=== PATIENT | female | born 1995 | race Caucasian/White ===

== ENCOUNTER 2017-06-02 05:34 | Emergency (ER) | payer BC ==
[2017-06-02] MEDS ORDERED: Acetaminophen 500 MG Tab PO ONE (06:20)
--- NOTE | 2017-06-02 06:21 | EDM.PDOC ---
<Jr Cook J - Last Filed: 06/02/17 06:19> ED HPI GENERAL MEDICAL PROBLEM - General Chief Complaint: Respiratory Problem Stated Complaint: LOWER RIGHT BACK PAIN, COUGH Time Seen by Provider: 06/02/17 05:57 - History of Present Illness INITIAL COMMENTS - FREE TEXT/NARRATIVE: HISTORY AND PHYSICAL: History of present illness: Patient's 21-year-old female was brought to 17 weeks who presents with a concern of history of otitis media and bronchitis who comes in now with left upper back pain related to coughing. She denies fever vomiting abdominal pain vaginal discharge bleeding or other concern is been no urinary symptoms. No trauma. Review of systems: As per history of present illness and below otherwise all systems reviewed and negative. Past medical history: As per history of present illness and as reviewed below otherwise noncontributory. Surgical history: As per history of present illness and as reviewed below otherwise noncontributory. Social history: No reported history of drug or alcohol abuse. Family history: As per history of present illness and as reviewed below otherwise noncontributory. Physical exam: HEENT: Atraumatic, normocephalic, pupils reactive, negative for conjunctival pallor or scleral icterus, mucous membranes moist, throat clear, neck supple, nontender, trachea midline. Lungs: Clear to auscultation, breath sounds equal bilaterally, chest nontender. Heart: S1S2, regular, negative for clicks, rubs, or JVD. Abdomen: Soft, gravid uterus Negative for masses or hepatosplenomegaly. Negative for costovertebral tenderness. Pelvis: Stable nontender. Genitourinary: Deferred. Rectal: Deferred. Extremities: Atraumatic, negative for cords or calf pain. Neurovascular unremarkable. Neuro: Awake, alert, oriented. Cranial nerves II through XII unremarkable. Cerebellum unremarkable. Motor and sensory unremarkable throughout. Exam nonfocal. Diagnostics: UA chest x-ray one view shielded abdomen heart tones Therapeutics: Tylenol 1 g by mouth Impression: 1 history of otitis media #2 left upper back pain #3 history of bronchitis #4 second trimester Definitive disposition and diagnosis as appropriate pending reevaluation and review of above. left lower back area Pain Score (Numeric/FACES): 7 - Related Data Allergies Allergy/AdvReac Type Severity Reaction Status Date / Time No Known Allergies Allergy Verified 06/02/17 05:48 Home Meds: Home Meds Amoxicillin 1 cap PO BID 06/02/17 [History] Past Medical History HEENT History: Reports: Otitis Media Cardiovascular History: Reports: None Respiratory History: Reports: Other (See Below) Other Respiratory History: Bronchitis Gastrointestinal History: Reports: None Genitourinary History: Reports: None [employer] History: Reports: None Musculoskeletal History: Reports: None Neurological History: Reports: None Psychiatric History: Reports: None Endocrine/Metabolic History: Reports: None Hematologic History: Reports: None Immunologic History: Reports: None Oncologic (Cancer) History: Reports: None Dermatologic History: Reports: None - Infectious Disease History Infectious Disease History: Reports: Chicken Pox - Past Surgical History Head Surgeries/Procedures: Reports: None Social & Family History - Family History Family Medical History: Noncontributory - Tobacco Use Smoking Status *Q: Never Smoker - Caffeine Use Caffeine Use: Reports: Coffee - Recreational Drug Use Recreational Drug Use: No ED ROS GENERAL - Review of Systems Review Of Systems: ROS reveals no pertinent complaints other than HPI. ED EXAM, GENERAL - Physical Exam Exam: See Below (dictation) Course - Vital Signs Last Recorded V/S: Last Vital Signs Temp 97.8 F 06/02/17 05:48 Pulse 106 H 06/02/17 05:48 Resp 18 06/02/17 05:48 BP 135/87 06/02/17 05:48 Pulse Ox 97 06/02/17 05:48 - Orders/Labs/Meds Orders: Active Orders 24 hr Category Date Time Status Heart Rate [RC] Click to Edit Care 06/02/17 06:30 Inactive Chest 1V Frontal [CR] Stat Exams 06/02/17 06:20 Taken Labs: Laboratory Tests 06/02/17 Range/Units 06:17 Urine Color YELLOW Urine Appearance CLEAR Urine pH 6.0 (5.0-8.0) Ur Specific [place] 1.020 (1.001-1.035) Urine Protein NEGATIVE (NEGATIVE) mg/dL Urine Glucose (UA) NEGATIVE (NEGATIVE) mg/dL Urine Ketones NEGATIVE (NEGATIVE) mg/dL Urine Occult Blood NEGATIVE (NEGATIVE) Urine Nitrite NEGATIVE (NEGATIVE) Urine Bilirubin NEGATIVE (NEGATIVE) Urine Urobilinogen 0.2 (<2.0) EU/dL Ur Leukocyte Esterase NEGATIVE (NEGATIVE) Urine RBC 0-1 (0-2/HPF) Urine WBC 0-2 (0-5/HPF) Ur Epithelial Cells FEW (NONE-FEW) Urine Bacteria RARE (NEGATIVE) Meds: Medications Discontinued Medications Generic Name Dose Route Start Last Admin Trade Name Eleazar PRN Reason Stop Dose Admin Acetaminophen 1,000 mg 06/02/17 06:20 06/02/17 06:25 Tylenol Extra Strength PO 06/02/17 06:21 1,000 mg ONETIME ONE Administration Departure - Departure Disposition: Home, Self-Care 01 Clinical Impression: Acute bronchitis, Otitis media, Second trimester - Discharge Information Referrals: Joaquin Badillo MD [Primary Care Provider] - Forms: ED Department Discharge Additional Instructions: Medication as prescribed Tylenol 650 mg every 6 hours by mouth as needed Return if symptoms persist or worsen Follow-up with primary care or OB provider in 2 weeks sooner as needed The following information is given to patients seen in the emergency department who are being discharged to home. This information is to outline your options for follow-up care. We provide all patients seen in our emergency department with a follow-up referral. The need for follow-up, as well as the timing and circumstances, are variable depending upon the specifics of your emergency department visit. If you don't have a primary care physician on staff, we will provide you with a referral. We always advise you to contact your personal physician following an emergency department visit to inform them of the circumstance of the visit and for follow-up with them and/or the need for any referrals to a consulting specialist. The emergency department will also refer you to a specialist when appropriate. This referral assures that you have the opportunity for follow-up care with a specialist. All of these measure are taken in an effort to provide you with optimal care, which includes your follow-up. Under all circumstances we always encourage you to contact your private physician who remains a resource for coordinating your care. When calling for follow-up care, please make the office aware that this follow-up is from your recent emergency room visit. If for any reason you are refused follow-up, please contact the [facility] emergency department at and asked to speak to the emergency department charge nurse. <Varun Serrano - Last Filed: 06/02/17 08:08> ED HPI GENERAL MEDICAL PROBLEM - History of Present Illness INITIAL COMMENTS - FREE TEXT/NARRATIVE: I've seen and examined the patient and agree with the above history and physical exam Patient is somewhat improved after taking the gram of Tylenol as above No fever nausea vomiting chills sweats no chest pain shortness breath headache dizziness palpitation no bowel or urine symptoms No abdominal pain or low back pain pressure vaginal bleeding spotting or fluid leakage HEENT grossly within normal limits tympanic membranes slight effusion on the left effusion with slight redness/pink TM is dull no mastoid tenderness and continued loss of landmarks on the right however no mastoid tenderness Chest clear throughout no wheeze or crackle CV regular rate and rhythm Abdomen soft nontender nondistended bowel sounds in all 4 quadrants uterus consistent with dates Extremities full range of motion strength 5 out of 5 no edema [employer] alert nonfocal Assessment Stream otitis media Left upper back pain, left lower rib pain History of bronchitis Second trimester Plan Continue Augmentin Tylenol when necessary Phenergan with codeine prescribed Return if symptoms persist or worsen Follow-up with OB or primary care for continued management Definitive disposition and diagnosis as appropriate pending reevaluation and review of above Departure - Departure Time of Disposition: 08:06 Condition: Good
--- NOTE | 2017-06-02 16:14 | CR ---
EXAM DATE: 06/02/17 PATIENT'S AGE: 21 Patient: SUSANA BILLY Facility: [place], [place] Site . Site : 1995 Study: XRay Chest [id number]/23/2018 6:58:59 AM Ordering Physician: Joyce Norris Final Report: HISTORY: Chest pain. Shortness of breath. Cough. TECHNIQUE: Frontal view the chest. COMPARISON: None. FINDINGS: No airspace consolidation. No pleural effusion or pneumothorax. Pulmonary vasculature is within normal limits. Cardiomediastinal silhouette is within normal limits. IMPRESSION: No cardiopulmonary abnormality. Dictated by Varun Mitchell MD @ Jun 02 2017 7:03AM (Electronic Signature) Report Signed by Proxy. BOYD
== END 2017-06-02 08:15 | disposition home or self-care (01) ==
LOC: MW.ED 05:34
DX: O99.89 Other specified diseases and conditions complicating pregnancy, childbirth and the puerperium (principal); M54.6 Pain in thoracic spine; H66.90 Otitis media, unspecified, unspecified ear; O99.512 Diseases of the respiratory system complicating pregnancy, second trimester; J20.9 Acute bronchitis, unspecified; Z3A.17 17 weeks gestation of pregnancy
CPT/HCPCS: 71045; 81001; 87804; 99284; A9270; 99283